=== PATIENT | male | born 2000 | race African-American/Black ===

== ENCOUNTER 2021-02-09 10:51 | Emergency (ER) | payer SELFPAY ==
[~2021-02-09] VITALS: Ht 195.6 cm; Wt 86.0 kg
--- NOTE | 2021-02-09 11:54 | RAD ---
Single view of the chest. 02/09/2021 11:21 AM Indication: Reason: rib pain / Comparison: None Findings: There is no focal consolidation. There is no pleural effusion or pneumothorax. The cardiome diastinal silhouette and pulmonary vasculature are within normal limits. No acute osseous abnormaliti es are seen. Impression: No evidence of acute cardiopulmonary process. Electronically signed by: Quan Rivas MD (02/09/2021 11:51 AM) [id number]
[2021-02-09 13:00] VITALS: BP 125/76
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
== END 2021-02-09 14:21 | disposition home or self-care (01) ==
LOC: ER 10:51
DX: S02.2XXA Fracture of nasal bones, initial encounter for closed fracture (principal); Y04.8XXA Assault by other bodily force, initial encounter; Y93.89 Activity, other specified; Y92.89 Other specified places as the place of occurrence of the external cause; Y99.8 Other external cause status
CPT/HCPCS: 70450; 70486; 71045; 99284-25